=== PATIENT | female | born 2005 | race Two or more races ===

== ENCOUNTER 2023-08-27 17:20 | Emergency (ER) | payer MEDICAID ==
[~2023-08-27] VITALS: Ht 152.4 cm; Wt 61.8 kg
[2023-08-27 19:27] LABS: APPEARANCE,URINE HAZY (CLEAR); BILIRUBIN,URINE NEGATIVE (NEGATIVE); COLOR,URINE LIGHT YELLOW (YELLOW); GLUCOSE, URINE (UA) NEGATIVE (NEGATIVE); KETONES,URINE NEGATIVE (NEGATIVE); LEUKOCYTE ESTERASE ,URINE LARGE (NEGATIVE); NITRATE,URINE NEGATIVE (NEGATIVE); OCCULT BLOOD,URINE NEGATIVE (NEGATIVE); PROTEIN,URINE TRACE mg/dL (NEGATIVE); SPECIFIC GRAVITIY, URINE 1.024 (1.003-1.030); UROBILINOGEN,URINE <=1.0 mg/dL (<=1.0)
[2023-08-27 19:35] LABS: RBC,URINE 0-2 /HPF (0-2)
[2023-08-27 19:36] LABS: BACTERIA,URINE Rare /HPF (None Seen); SQUAMOUS EPITHELIAL CELL,UR Few /LPF (None Seen)
[2023-08-27] MEDS ORDERED: MICO45CR76 VG (20:03)
[2023-08-27 20:14] VITALS: BP 111/71; PULSE 60; RESP 18; TEMP 98.2
== END 2023-08-27 20:17 | disposition home or self-care (01) ==
LOC: EMS 17:22
DX: O46.92 Antepartum hemorrhage, unspecified, second trimester (principal); R10.2 Pelvic and perineal pain; Z88.8 Allergy status to other drugs, medicaments and biological substances
CPT/HCPCS: 76856; 81001; 84703; 99284; Z7502

== ENCOUNTER 2023-11-04 12:59 | Emergency (ER) | payer MEDICAID ==
[~2023-11-04] VITALS: Ht 149.9 cm; Wt 59.1 kg
[~2023-11-04 12:59] MED LIST: MICO45CR76 VG
[2023-11-04 13:34] LABS: COVID AG,FIA SOURCE NASAL SWAB
[2023-11-04 14:18] LABS: SARS-COV2 (COVID) ANTIGEN,FIA Negative (Negative)
[2023-11-04 14:19] LABS: INFLUENZA TYPE A NEGATIVE FOR TYPE A (NEGATIVE); INFLUENZA TYPE B NEGATIVE FOR TYPE B (NEGATIVE)
[2023-11-04] MEDS ORDERED: ONDANSETRON HCL 4 MG/2 ML VIAL IVP ONE (15:00)
[2023-11-04] MEDS ORDERED: SODIUM CHLORIDE 0.9% 1,000 ML IV ONE (15:00)
[2023-11-04 15:05] VITALS: TEMP 98.3
[2023-11-04 16:16] VITALS: BP 110/51; PULSE 88; RESP 19
[2023-11-04] MEDS ORDERED: ONDA-104 PO (16:25)
[2023-11-04] MEDS ORDERED: KETOROLAC TROMETHAMINE 30 MG/ML VIAL IVP ONE (16:30)
[2023-11-04] MEDS ORDERED: BENZ-227 PO (16:55)
== END 2023-11-04 17:16 | disposition home or self-care (01) ==
LOC: EMS 13:53
DX: J06.9 Acute upper respiratory infection, unspecified (principal); Z88.8 Allergy status to other drugs, medicaments and biological substances; Z98.890 Other specified postprocedural states; Z20.822 Contact with and (suspected) exposure to COVID-19
CPT/HCPCS: 99284; 96374; 96361; 96375; 87426; 87804; J1885; J2405; J7030

== ENCOUNTER 2025-07-27 17:48 | Inpatient (IN) | payer MEDICAID ==
[~2025-07-27 17:48] MED LIST changes: +ARIP5TAB8 PO; +BENZ-227 PO; +DIVA-111 PO; -MICO45CR76 VG; +ONDA-104 PO
[2025-07-27 19:36] LABS: GLUCOMETER DEV NAME(LOC) POC.BV; POC SARS-COV2 AG, FIA NEGATIVE (NEGATIVE)
[2025-07-27] MEDS: ZOLPIDEM TARTRATE 10 MG TABLET PO PRN (21:15)
[2025-07-27 22:43] VITALS: BP 105/70; PULSE 90; RESP 18; TEMP 97.7; O2SAT 98
[2025-07-28 08:13] VITALS: BP 100/62; PULSE 68; RESP 17; TEMP 97.2; O2SAT 99
[2025-07-28 09:11] LABS: PLATELET COUNT (AUTO) 256 K/uL (150-450); RED BLOOD CELL COUNT(AUTO) 4.59 MIL/uL (4.00-5.20); RED CELL DISTRIBUTION WIDTH 13.2 % (11.5-14.5); WHITE BLOOD COUNT (AUTO) 4.7 K/uL (4.5-11.0)
[2025-07-28 09:41] LABS: APPEARANCE,URINE HAZY (CLEAR); GLUCOSE, URINE (UA) NEGATIVE (NEGATIVE); LEUKOCYTE ESTERASE ,URINE MODERATE (NEGATIVE); NITRATE,URINE NEGATIVE (NEGATIVE); OCCULT BLOOD,URINE NEGATIVE (NEGATIVE); SPECIFIC GRAVITIY, URINE 1.030 (1.003-1.030)
[2025-07-28 09:48] LABS: ASPARTATE AMINOTRANSFERASE 24 U/L (15-37); CALCIUM, TOTAL 9.0 mg/dL (8.8-10.5); CHOL/HDL RATIO 3.2 (3.9-5.7); CREATININE 0.72 mg/dL (0.60-1.30); GLOMERULAR FILTR. RATE CALC > 60 mL/min (>60); GLUCOSE,RANDOM 89 mg/dL (70-110); HCG,QUANTITATIVE 1 mIU/mL (0-6); LDL CHOL (CALC.) 125 mg/dL (0-130); SODIUM SERUM 137 mmol/L (136-145); TOTAL PROTEIN, SERUM 7.7 g/dL (6.4-8.2); UREA NITROGEN, BLOOD 16 mg/dL (7-18)
[2025-07-28 09:49] LABS: ALCOHOL, URINE DRUG SCREEN NEGATIVE (NEGATIVE); AMPHET/METH SCREEN,URINE NEGATIVE (NEGATIVE); BARBITURATE SCREEN, URINE NEGATIVE (NEGATIVE); CANNABINOID SCREEN,URINE POSITIVE (NEGATIVE); COCAINE SCREEN,URINE NEGATIVE (NEGATIVE); METHADONE SCREEN, URINE NEGATIVE (NEGATIVE)
[2025-07-28 10:12] LABS: PH,URINE DRUG SCREEN 6.5 (5.0-8.0)
[2025-07-28 10:13] LABS: SQUAMOUS EPITHELIAL CELL,UR Many /LPF (None Seen)
[2025-07-28] MEDS: SERTRALINE HCL 50 MG TABLET PO SCH (12:19)
[2025-07-28 16:30] VITALS: BP 125/89; PULSE 84; RESP 18; TEMP 97.3; O2SAT 97
[2025-07-28] MEDS ORDERED: ALBUTEROL SULFATE HFA 90 MCG/PUFF 8 GM INHALER IH PRN (16:30)
[2025-07-28] MEDS ORDERED: BENZOCAINE/MENTHOL [CEPACOL] LOZENGE PO PRN (16:30)
[2025-07-28] MEDS ORDERED: DOCUSATE SODIUM 100 MG CAPSULE PO PRN (16:30)
[2025-07-28] MEDS ORDERED: PETROLATUM,WHITE 28 GM JELLY TP PRN (16:30)
[2025-07-28] MEDS ORDERED: LOPERAMIDE HCL 2 MG CAPSULE PO PRN (16:30)
[2025-07-28] MEDS ORDERED: MAG HYDROX/ALUMINUM HYD/SIMETH ES 30 ML SUSPENSION UDCUP PO PRN (16:30)
[2025-07-28] MEDS ORDERED: MAGNESIUM HYDROXIDE SUSPENSION 30 ML UDCUP PO PRN (16:30)
[2025-07-28] MEDS ORDERED: BACITRACIN 28 GM OINTMENT TP PRN (16:30)
[2025-07-28] MEDS ORDERED: ACETAMINOPHEN 325 MG TABLET PO PRN (16:30)
[2025-07-28] MEDS ORDERED: OMEPRAZOLE 20 MG CAPSULE PO PRN (16:30)
[2025-07-28] MEDS ORDERED: IBUPROFEN 600 MG TABLET PO PRN (16:30)
[2025-07-28] MEDS: ONDANSETRON HCL 4 MG/2 ML VIAL IM ONE (16:53)
[2025-07-28 20:24] VITALS: BP 125/77; PULSE 84; RESP 17; TEMP 98.1; O2SAT 98
[2025-07-29 08:17] VITALS: BP 134/79; PULSE 87; RESP 18; TEMP 97.8; O2SAT 98
[2025-07-29] MEDS: NITROFURANTOIN MONOHYD/M-CRYST 100 MG CAPSULE [MACROBID] PO SCH (08:32)
[2025-07-29 23:38] VITALS: BP 112/73; PULSE 81; RESP 18; TEMP 98.3; O2SAT 99
[2025-07-30] MEDS: ONDANSETRON 4 MG TABLET PO PRN (02:38)
[2025-07-30 08:54] VITALS: BP 104/60; PULSE 89; RESP 18; TEMP 98.6; O2SAT 98
[2025-07-30] MEDS ORDERED: SERT-158 PO (12:44)
[2025-07-30] MEDS ORDERED: NITR-104 PO (12:55)
== END 2025-07-30 14:45 | disposition home or self-care (01) | DRG 750 ==
LOC: B2S 18:53
PROVIDERS: ADMIT Psychiatry & Neurology Psychiatry; ATTEND Psychiatry & Neurology Psychiatry
PROC: GZHZZZZ Group Psychotherapy (ICD-10-PCS; principal; 2025-07-28)
DX: F33.3 Major depressive disorder, recurrent, severe with psychotic symptoms (principal); Z59.01 Sheltered homelessness; R45.851 Suicidal ideations; F12.10 Cannabis abuse, uncomplicated; F41.9 Anxiety disorder, unspecified; G47.00 Insomnia, unspecified; N39.0 Urinary tract infection, site not specified; Z20.822 Contact with and (suspected) exposure to COVID-19; F43.10 Post-traumatic stress disorder, unspecified; F60.3 Borderline personality disorder; F43.12 Post-traumatic stress disorder, chronic; Z79.899 Other long term (current) drug therapy; Z88.1 Allergy status to other antibiotic agents; Z91.51 Personal history of suicidal behavior
CPT/HCPCS: 80053; 80061; 80307; 81001; 83036; 84439; 84443; 84702; 85025; 87081; 87086; J2405; Q0162